=== PATIENT | female | born 1935 | race Caucasian/White ===

== ENCOUNTER 2016-06-10 13:58 | Emergency (ER) | payer MEDICARE ==
[2016-06-10 15:23] LABS: ABSOLUTE NEUTROPHIL COUNT 2.3 K/mm3 (1.8-7.7); BASO % 0.4 % (0.2-1.0); HEMATOCRIT 35.1 % (37.0-47.0); HEMOGLOBIN 11.7 gm/l (12.0-16.0); IMM NEUT% 0.4 % (0-1); LYMPH # 1.4 (1.0-4.8); LYMPH % 31.3 % (15-45); MEAN CELL VOLUME 89.1 fl (81.0-99.0); MEAN CORPUSCULAR HEMOGLOBIN 29.7 pg (27.0-31.0); MEAN CORPUSCULAR HGB CONC 33.3 g/dl (33.0-37.0); MEAN PLATELET VOLUME 11.1 fl (7.4-10.4); MONO # 0.8 (0.0-0.8); MONO % 17.3 % (4-12); NEUT % 50.6 % (43-75); PLATELET COUNT 143 K/mm3 (130-400); RED CELL DISTRIBUTION WIDTH 12.8 % (11.5-14.5)
--- NOTE | 2016-06-10 15:32 | RAD ---
History: Coughing with flu. Comparison: 10/04/2011. Technique: 2 views Findings: There are multilevel thoracic degenerative changes noted. The heart size is stable. There is no infiltrate, effusion or pneumothorax visualized. The hilar and mediastinal structures are intact. Impression: 1. No active intra-thoracic disease.
[2016-06-10 15:33] LABS: ALBUMIN 3.4 gm/dL (3.5-5.7); CALCIUM 8.5 mg/dL (8.6-10.3)
[2016-06-10 17:23] LABS: URINE BILIRUBIN NEGATIVE (NEGATIVE); URINE BLOOD TRACE (NEGATIVE); URINE GLUCOSE (UA) NEGATIVE (NEGATIVE); URINE LEUKOCYTE ESTERASE 1+ (NEGATIVE); URINE NITRITE NEGATIVE (NEGATIVE); URINE PROTEIN NEGATIVE (NEGATIVE); URINE UROBILINOGEN NORMAL (0-1 mg/dl)
[2016-06-10 17:33] LABS: URINE APPEARANCE CLEAR; URINE COLOR YELLOW
[2016-06-10 17:34] LABS: URINE BACTERIA RARE; URINE EPITHELIAL CELLS 0-2 /hpf
== END 2016-06-10 17:44 | disposition home or self-care (01) ==
LOC: ED 13:58
DX: R55 Syncope and collapse (principal); E86.0 Dehydration; J11.1 Influenza due to unidentified influenza virus with other respiratory manifestations; J06.9 Acute upper respiratory infection, unspecified; D68.0 Von Willebrand disease; I10 Essential (primary) hypertension; Z79.899 Other long term (current) drug therapy